=== PATIENT | female | born 1970 | race Caucasian/White ===

== ENCOUNTER 2016-11-21 08:20 | Emergency (ER) | payer OTHER ==
[~2016-11-21] VITALS: Ht 152.4 cm; Wt 74.8 kg
[2016-11-21 08:45] VITALS: BP 114/69
--- NOTE | 2016-11-21 08:50 | NUR ---
45/F presents to ED for evaluation of vomiting x3 episodes during the night. Pt denies blood in emesis. Patient has had no vomiting while in ED. Patient denies pain. Patient is AOX4, italian speaking with clear speech. Patient c/o nausea. Denies fever or chills. Skin warm and dry, normal in color for ethnicity. Pt in no distress at this time. VSS. Pt appears calm and relaxed.
--- NOTE | 2016-11-21 08:50 | NUR ---
Pt ambulated to bed 6.
[2016-11-21] MEDS ORDERED: NACL 0.9% 1,000 ML IV SCH (09:01)
[2016-11-21] MEDS ORDERED: ONDANSETRON 4 MG/2 ML VIAL IVP ONE (09:05)
[2016-11-21] MEDS ORDERED: FAMOTIDINE 20 MG/2 ML VIAL IVP ONE (09:05)
--- NOTE | 2016-11-21 10:16 | NUR ---
Patient appears to be resting comfortably in bed. Vital Signs within normal limits. Respirations even and unlabored.
--- NOTE | 2016-11-21 11:21 | NUR ---
Patient appears to be resting comfortably in bed. Vital Signs within normal limits. Respirations even and unlabored.
--- NOTE | 2016-11-21 11:54 | NUR ---
IV removed, catheter intact and site benign. Applied folded 4x4 gauze and tape to stop bleeding.
[2016-11-21 12:17] VITALS: BP 118/76
--- NOTE | 2016-11-21 12:17 | NUR ---
Patient discharged with v/s stable. Written and verbal after care instructions given and explained. Patient alert, oriented and verbalized understanding of instructions. Ambulatory with steady gait. All questions addressed prior to discharge. ID band removed. Patient advised to follow up with PMD. Rx of TYLENOL AND ZOFRAN given. Patient educated on indication of medication including possible reaction and side effects. Opportunity to ask questions provided and answered.
--- NOTE | 2016-11-21 12:18 | NUR ---
Chart checked and completed. The patient's care was reviewed and supervised by Ramón Dias RN.
== END 2016-11-21 12:18 | disposition home or self-care (01) ==
LOC: MED 08:20
DX: K52.9 Noninfective gastroenteritis and colitis, unspecified (principal); G44.209 Tension-type headache, unspecified, not intractable
CPT/HCPCS: 36415; 80053; 81001; 81025; 82150; 83690; 85025; 96361; 96374; 96375; 99284; J2405; J3490; J7030